=== PATIENT | female | born 1950 | race Caucasian/White ===

== ENCOUNTER 2021-07-27 08:15 | Day surgery (SDC) | payer BC ==
[~2021-07-27 08:15] MED LIST: Bupivacaine 0.5% 30 ML SDV ONE
[2021-07-27] MEDS ORDERED: Lactated Ringers 1,000 ML IV SCH (09:00)
[2021-07-27] MEDS ORDERED: ceFAZolin 2 GM in Sodium Chloride 0.9% 50 ML IV ONE (09:00)
[2021-07-27] MEDS ORDERED: ceFAZolin 2 GM in Premix Bag 1 BAG IV ONE (09:00)
[2021-07-27] MEDS ORDERED: Nozin Nasal Sanitizer NASBOTH ONE (09:00)
[2021-07-27] MEDS ORDERED: Ondansetron 4 MG/2 ML SDV ONE (09:32)
[2021-07-27] MEDS ORDERED: Midazolam 1 MG/ML 2 ML SDV ONE (09:32)
[2021-07-27] MEDS ORDERED: fentaNYL 100 MCG/2 ML SDV ONE ×3 (09:32→11:31)
[2021-07-27] MEDS ORDERED: Dexamethasone 4 MG/ML SDV ONE (09:32)
[2021-07-27] MEDS ORDERED: Propofol 200 MG/20 ML SDV ONE (09:32)
[2021-07-27] MEDS ORDERED: Acetaminophen/HYDROcodone 325-5 MG Tab PO PRN (13:14)
[2021-07-27 14:18] VITALS: BP 160/84; PULSE 85
--- NOTE | 2021-07-28 12:44 | PCM.EKG ---
#1 Interpretation EKG Date: 07/27/21 Time: 08:46 Rhythm: NSR Rate (Beats/Min): 73 [place]: LAD-Left [place] Deviation P-Wave: Present QRS: Normal ST-T: Normal QT: Normal GA/PQ Interval: normal Comparison: NA - No Prior EKG EKG Interpretation Comments: LVH present
--- NOTE | 2021-08-03 21:35 | OR ---
DATE OF PROCEDURE: 07/27/2021 SURGEON: Sumit Huggins MD PREOPERATIVE DIAGNOSIS: Right ankle fracture dislocation. POSTOPERATIVE DIAGNOSES: Right ankle fracture dislocation with fractures of medial and posterior tibial malleoli and rupture of syndesmosis. PROCEDURES: Open reduction internal fixation, right distal tibia, medial and posterior malleoli, and fixation of syndesmosis with Ar[employer]rex TightRope device. CHILD SUPPORT CASE OFFICER: DOUGLAS Johnson ANESTHESIA: General. INDICATIONS: Aimee is a 71-year-old female, who sustained an injury to her right ankle when she jumped from her horse a couple of days ago. This resulted in a posterolateral fracture dislocation. The ankle was reduced in the emergency room but showed some persistent posterior displacement and a significant widening of the syndesmosis and ankle mortise with fractures of the medial malleoli and posterior malleoli. She now presents for fixation. Risks, benefits, and potential complications were discussed. assistant professor of history services of physician title i assistant Martin Muller were utilized for retraction, fracture exposure, manipulation, positioning of the leg, and assist with closure. PROCEDURE IN DETAIL: After adequate anesthesia was obtained, the patient was placed supine with a tourniquet about the right upper thigh. The right leg was prepped and draped in a sterile fashion. The leg was exsanguinated and the tourniquet inflated to 300 mmHg pressure. A curvilinear incision was made over the medial malleolus and carried down through the subcutaneous tissues, and the medial aspect of the tibia and medial malleolar fragment were identified. Dissection was carried posteriorly up to the posterior tibialis tendon sheath, exposing the posterior malleolus fragment. Fragments were reduced and held in position with bone clamps and temporary K-wire fixation. Reduction was evaluated using fluoroscopy, showing reduction of the fragments and a good position of the talus within the joint. A 1/3 semitubular plate was slightly contoured to fit along the posteromedial aspect for an antiglide plate and secured with 3.5 screws. The medial malleolus fragment was secured with two 4.0 partially-threaded cancellous screws with good compression. Final position was confirmed using fluoroscopy. Attention was then turned to the syndesmosis. A small incision was made just above the level of the ankle joint overlying the subcutaneous border of the fibula. Blunt dissection was carried down to the lateral cortex of the fibula. Position was confirmed fluoroscopically, and a guidewire was then drilled across the fibula, into the tibia, and out the medial incision. A cannulated drill was placed over this, and the drill and guidewire were removed. The long needle was then placed through this track and brought out medially. The TightRope toggle was set flush against the cortex of the tibia, and the lateral button was then cinched down over the lateral cortex of the fibula. The foot was placed into a neutral position. Sutures were tightened and tied over the button laterally and then cut. Final position was confirmed using fluoroscopy. The wounds were then thoroughly irrigated. The incision was closed with 0 Vicryl in the deep layer and 2-0 Vicryl in the skin. Surgical vi were used due to some degloving compromise of the skin and fracture blister in the region of the incision. The wounds were infiltrated with 0.5% Marcaine. A sterile dressing was applied, and a well-padded plaster AO splint was applied with the foot in neutral position. Sumit Huggins MD /[id number]
== END 2021-07-27 15:36 | disposition home or self-care (01) ==
LOC: JP.SDS 08:15
PROVIDERS: ATTEND Specialist
DX: S82.51XA Displaced fracture of medial malleolus of right tibia, initial encounter for closed fracture (principal); S82.891A Other fracture of right lower leg, initial encounter for closed fracture; S93.439A Sprain of tibiofibular ligament of unspecified ankle, initial encounter; I10 Essential (primary) hypertension; E78.5 Hyperlipidemia, unspecified; E66.9 Obesity, unspecified
CPT/HCPCS: 27814; 27829; 36415; 80048; 85027; 93005; 97116; A9270; C1713; C1776; J0690; J1100; J2250; J2405; J2704; J3010; J3490; J7120

== ENCOUNTER 2021-12-26 09:19 | Inpatient (IN) | payer MEDICARE, BC ==
[~2021-12-26 09:19] MED LIST changes: +Midazolam 1 MG/ML 2 ML SDV ONE; +Propofol 200 MG/20 ML SDV ONE; +fentaNYL 100 MCG/2 ML SDV ONE
[2021-12-26] MEDS ORDERED: Lactated Ringers 1,000 ML IV SCH (10:00)
[2021-12-26] MEDS ORDERED: ceFAZolin 2 GM in Premix Bag 1 BAG IV ONE (10:00)
[2021-12-26] MEDS: Nozin Nasal Sanitizer NASBOTH SCH ×2 (10:43→20:09)
[2021-12-26] MEDS ORDERED: Ondansetron 4 MG/2 ML SDV ONE (11:03)
[2021-12-26] MEDS ORDERED: Dexamethasone 4 MG/ML SDV ONE (11:03)
[2021-12-26] MEDS ORDERED: Neostigmine Methylsulfate 1 MG/ML 5 ML Syringe ONE (11:03)
[2021-12-26] MEDS ORDERED: Glycopyrrolate 0.2 MG/ML 5 ML MDV ONE (11:03)
[2021-12-26] MEDS ORDERED: Rocuronium 50 MG/5 ML Vial ONE (11:03)
[2021-12-26] MEDS ORDERED: fentaNYL 250 MCG/5 ML SDV ONE ×2 (11:04→12:59)
[2021-12-26] MEDS ORDERED: Lactated Ringers 1,000 ML ONE (14:07)
[2021-12-26] MEDS ORDERED: fentaNYL 100 MCG/2 ML SDV ONE (15:05)
[2021-12-26] MEDS ORDERED: Ondansetron 4 MG/2 ML SDV IVPUSH PRN (15:26)
[2021-12-26] MEDS ORDERED: traMADol 50 MG Tab PO PRN (15:26)
[2021-12-26] MEDS ORDERED: Acetaminophen 500 MG Tab PO PRN (15:26)
[2021-12-26] MEDS ORDERED: HYDROmorphone 0.5 MG/0.5 ML Syringe IVPUSH PRN (15:26)
[2021-12-26] MEDS ORDERED: Sodium Chloride 0.9% 1,000 ML IV SCH (15:30)
[2021-12-26] MEDS: oxyCODONE 5 MG Tab PO PRN ×2 (17:31→21:54)
[2021-12-26] MEDS ORDERED: Benzocaine/Cetylpyridinium/Menthol Lozenge MUCMEM PRN (17:35)
[2021-12-26] MEDS: Aspirin 81 MG Tab.Chew PO SCH (20:07)
[2021-12-26] MEDS: ceFAZolin 1 GM in Premix Bag 1 BAG IV SCH (20:07)
[2021-12-26] MEDS: Docusate Sodium 100 MG Cap PO SCH (20:08)
[2021-12-26] MEDS: FLUoxetine 20 MG Cap PO SCH (20:08)
[2021-12-26] MEDS ORDERED: Nozin Nasal Sanitizer NASBOTH SCH (21:00)
[2021-12-27] MEDS: oxyCODONE 5 MG Tab PO PRN ×5 (01:44→21:31)
[2021-12-27] MEDS: ceFAZolin 1 GM in Premix Bag 1 BAG IV SCH ×2 (04:17→11:41)
[2021-12-27] MEDS: Nozin Nasal Sanitizer NASBOTH SCH ×2 (08:44→21:29)
[2021-12-27] MEDS: Hydrochlorothiazide 12.5 MG Cap PO SCH (08:45)
[2021-12-27] MEDS: Aspirin 81 MG Tab.Chew PO SCH ×2 (08:45→21:31)
[2021-12-27] MEDS: Lisinopril 20 MG Tab PO SCH (08:46)
[2021-12-27] MEDS: Docusate Sodium 100 MG Cap PO SCH ×2 (08:46→21:31)
[2021-12-27] MEDS: Acetaminophen 500 MG Tab PO SCH ×3 (13:57→23:57)
[2021-12-27] MEDS: FLUoxetine 20 MG Cap PO SCH (21:31)
[2021-12-28] MEDS: oxyCODONE 5 MG Tab PO PRN ×4 (01:49→13:29)
[2021-12-28] MEDS: Acetaminophen 500 MG Tab PO SCH ×2 (05:58→12:21)
[2021-12-28] MEDS: Hydrochlorothiazide 12.5 MG Cap PO SCH (08:30)
[2021-12-28] MEDS: Lisinopril 20 MG Tab PO SCH (08:30)
[2021-12-28] MEDS: Docusate Sodium 100 MG Cap PO SCH (08:30)
[2021-12-28] MEDS: Aspirin 81 MG Tab.Chew PO SCH (08:30)
[2021-12-28] MEDS: Nozin Nasal Sanitizer NASBOTH SCH (08:30)
[2021-12-28 10:56] VITALS: BP 127/53; PULSE 73
== END 2021-12-28 13:46 | disposition home or self-care (01) | DRG 494 ==
LOC: JP.SDS 09:19 → JP.MS 16:10 → JP.SDS 12-27 08:47 → JP.MS 12-27 08:47
PROVIDERS: ADMIT Specialist; ATTEND Specialist
PROC: 0QSH04Z Reposition Left Tibia with Internal Fixation Device, Open Approach (ICD-10-PCS; principal; 2021-12-26)
PROC: 0QRH07Z Replacement of Left Tibia with Autologous Tissue Substitute, Open Approach (ICD-10-PCS; 2021-12-26)
PROC: 0QB20ZZ Excision of Right Pelvic Bone, Open Approach (ICD-10-PCS; 2021-12-26)
PROC: 0QPH04Z Removal of Internal Fixation Device from Left Tibia, Open Approach (ICD-10-PCS; 2021-12-26)
DX: S82.86 Maisonneuve's fracture (principal); D64.9 Anemia, unspecified; M84.462K Pathological fracture, left tibia, subsequent encounter for fracture with nonunion; Z79.82 Long term (current) use of aspirin; Z79.899 Other long term (current) drug therapy; Z87.81 Personal history of (healed) traumatic fracture; Z98.890 Other specified postprocedural states; I10 Essential (primary) hypertension; F32.A Depression, unspecified; E78.5 Hyperlipidemia, unspecified
CPT/HCPCS: 27724; 36415; 76000; 80053; 85027; 97110-GP; 97162-GP; 97530-GP; 97535-GP; A9270-GY; C1713; C1776; J0690; J1100; J1170; J2250; J2405; J2704; J2710; J3010; J3490; J7030; J7120